=== PATIENT | male | born 1980 | race Caucasian/White ===

== ENCOUNTER 2023-02-24 09:55 | Inpatient (IN) | payer MEDICAID ==
[~2023-02-24] VITALS: Ht 180.3 cm; Wt 59.0 kg
[2023-02-24] MEDS ORDERED: SODIUM CHLORIDE 0.9% 1,000 ML IV ONE (10:30)
[2023-02-24] MEDS ORDERED: CEFTRIAXONE 1GM PREMIX 50 ML IV NR (11:00)
[2023-02-24] MEDS ORDERED: AZITHROMYCIN 500MG/250ML 250 ML IV NR (11:00)
[2023-02-24 11:01] LABS: HEMATOCRIT. 40.3 % (42.0-52.0); MEAN CORPUSCULAR HEMOGLOBIN 32.6 pg (28.0-32.0); MEAN CORPUSCULAR HGB CONC 34.9 g/dL (31.0-37.0); MEAN CORPUSCULAR VOLUME 93.4 fL (80.0-94.0); PLATELET 347 x1000/uL (130-400); RED BLOOD CELL COUNT 4.31 mill/uL (4.7-6.1); RED CELL DISTRIBUTION WIDTH 13.4 % (11.6-14.6); WHITE BLOOD COUNT 20.3 x1000/uL (4.5-11.0)
[2023-02-24 11:03] LABS: CLARITY URINE CLEAR (CLEAR); COLOR URINE YELLOW (YELLOW); GLUCOSE URINE NEGATIVE (NEGATIVE); KETONES URINE NEGATIVE (NEGATIVE); LEUKOCYTE ESTERASE URINE NEGATIVE (NEGATIVE); NITRITE URINE NEGATIVE (NEGATIVE); OCCULT BLOOD URINE 2+ (NEGATIVE); PROTEIN URINE 2+ (NEGATIVE); SPECIFIC GRAVITY URINE 1.015 (1.005-1.030)
[2023-02-24 11:03] LABS: DIFFERENTIAL COMMENT 1
[2023-02-24 11:12] LABS: ALANINE AMINOTRANSFERASE 111 IU/L (10-49); ASPARTATE AMINOTRANSFERASE 176 IU/L (<34); BILIRUBIN TOTAL 0.5 mg/dL (0.1-1.0); CALCIUM 9.1 mg/dL (8.7-10.4); CARBON DIOXIDE 29 mEq/L (21-32); CHLORIDE 83 mEq/L (98-107); CREATININE 0.7 mg/dL (0.6-1.3); GLUCOSE 71 mg/dL (70-105); POTASSIUM 3.5 mEq/L (3.5-5.1); PROTEIN TOTAL 7.6 g/dL (6.0-8.3); UREA NITROGEN BLOOD 16 mg/dL (9-23)
[2023-02-24 11:16] LABS: COARSE GRANULAR CASTS URINE 0-5 /lpf
[2023-02-24 11:18] LABS: SQUAMOUS EPITHELIAL CELL URINE FEW /lpf (RARE/1+)
[2023-02-24 11:19] LABS: BACTERIA URINE TRACE; RBC URINE 0-2 /hpf (0-2); WBC URINE 0-2 /hpf (0-2)
[2023-02-24 11:31] LABS: TROPONIN I HIGH SENSITIVITY 431 ng/L (3.0-53)
[2023-02-24 11:32] LABS: SODIUM 119 mEq/L (136-145)
[2023-02-24 11:46] LABS: PLATELET ESTIMATE NORMAL
[2023-02-24] MEDS ORDERED: POTASSIUM CHLORIDE 20MEQ TABLET SR PO NR (13:00)
[2023-02-24] MEDS ORDERED: ASPIRIN 81MG TABLET PO NR (13:15)
[2023-02-24] MEDS ORDERED: MAGNESIUM/ALUMINUM HYDROXIDE/SIMETHICONE 30ML UDC PO PRN (14:30)
[2023-02-24] MEDS ORDERED: IPRATROPIUM/ALBUTEROL 0.5-3(2.5)MG/3ML NEB HHN PRN (14:30)
[2023-02-24] MEDS ORDERED: ACETAMINOPHEN 325MG TABLET PO PRN (14:30)
[2023-02-24] MEDS ORDERED: ONDANSETRON HCL 4MG/2ML INJ IV PRN (14:30)
[2023-02-24] MEDS ORDERED: CLONIDINE 0.1MG TABLET PO PRN (14:30)
[2023-02-24] MEDS ORDERED: DIPHENHYDRAMINE 50MG/ML VIAL IV PRN (14:30)
[2023-02-24] MEDS ORDERED: CEFTRIAXONE 1GM PREMIX 50 ML IV SCH (14:30)
[2023-02-24] MEDS: SODIUM CHLORIDE 0.9% 1,000 ML IV SCH (14:59)
[2023-02-24 15:48] LABS: CHOLESTEROL 95 mg/dL (<200); HDL CHOLESTEROL < 20 mg/dL (>55); LDL CHOLESTEROL 41 mg/dL (5-100); T4 FREE 1.14 ng/dL (0.89-1.76); THYROID STIMULATING HORMONE 0.38 uIU/mL (0.55-4.78); TRIGLYCERIDE 160 mg/dL (0-150)
[2023-02-24 15:58] LABS: ETHANOL BLOOD < 10 mg/dL (<10)
[2023-02-24] MEDS ORDERED: VANCOMYCIN 1500MG in DEXTROSE 5% WATER 250ML IV NR (16:00)
[2023-02-24] MEDS: PANTOPRAZOLE SODIUM 40 MG/VIAL IV SCH (16:28)
[2023-02-24] MEDS: ACETAMINOPHEN 325MG TABLET PO PRN (21:30)
[2023-02-24 23:54] LABS: CREATINE KINASE 259 IU/L (46-171)
[2023-02-25] VITALS (7 sets, daily range): BP systolic 92–140; BP diastolic 57–90; PULSE 88–132; RESP 18–20; TEMP 97.9–104.2; O2SAT 91
[2023-02-25] MEDS ORDERED: VANCOMYCIN 1G PREMIX 200 ML IV SCH
[2023-02-25] MEDS: SODIUM CHLORIDE 0.9% 1,000 ML IV SCH ×2 (03:37→16:35)
[2023-02-25 07:02] LABS: HEMATOCRIT. 36.7 % (42.0-52.0); HEMOGLOBIN. 12.5 g/dL (14.0-18.0); MEAN CORPUSCULAR HEMOGLOBIN 32.7 pg (28.0-32.0); MEAN CORPUSCULAR HGB CONC 34.2 g/dL (31.0-37.0); MEAN CORPUSCULAR VOLUME 95.5 fL (80.0-94.0); MEAN PLATELET VOLUME 9.8 fl (7.4-10.4); PLATELET 328 x1000/uL (130-400); RED BLOOD CELL COUNT 3.84 mill/uL (4.7-6.1); RED CELL DISTRIBUTION WIDTH 13.4 % (11.6-14.6); WHITE BLOOD COUNT 13.6 x1000/uL (4.5-11.0)
[2023-02-25 07:04] LABS: CALCIUM 8.5 mg/dL (8.7-10.4); CARBON DIOXIDE 23 mEq/L (21-32); CHLORIDE 92 mEq/L (98-107); CREATINE KINASE 201 IU/L (46-171); CREATININE 0.6 mg/dL (0.6-1.3); GLUCOSE 101 mg/dL (70-105); POTASSIUM 3.8 mEq/L (3.5-5.1); SODIUM 124 mEq/L (136-145); UREA NITROGEN BLOOD 12 mg/dL (9-23)
[2023-02-25 07:38] LABS: TROPONIN I HIGH SENSITIVITY 238 ng/L (3.0-53)
[2023-02-25 07:43] LABS: DIFFERENTIAL COMMENT 1
[2023-02-25] MEDS: PANTOPRAZOLE SODIUM 40 MG/VIAL IV SCH (08:59)
[2023-02-25] MEDS: ASPIRIN 81MG EC TABLET PO SCH (08:59)
[2023-02-25] MEDS: ACETAMINOPHEN 325MG TABLET PO PRN ×3 (09:12→20:33)
[2023-02-25] MEDS: GUAIFENESIN/DM 600MG/30MG ER TAB 12HR PO SCH ×2 (10:48→20:34)
[2023-02-25] MEDS: VANCOMYCIN 750MG PREMIX 150 ML IV SCH ×2 (10:48→16:47)
[2023-02-25] MEDS ORDERED: AZITHROMYCIN 500 MG in DEXT 5% WATER 250 ML IV SCH (12:00)
[2023-02-25] MEDS ORDERED: DEXTROSE 50% WATER 50ML SYRINGE IV PRN (12:30)
[2023-02-25] MEDS: BLOOD SUGAR DIAGNOSTIC STRIP TEST SCH ×3 (12:40→20:59)
[2023-02-25] MEDS: CEFTRIAXONE 1,000 MG in DEXTROSE 5% WATER 50 ML IV SCH (12:58)
[2023-02-25] MEDS: INSULIN LISPRO 100 UNITS/ML SUBCUT SCH ×3 (13:10→20:59)
[2023-02-25] MEDS: IPRATROPIUM/ALBUTEROL 0.5-3(2.5)MG/3ML NEB HHN SCH (15:47)
[2023-02-25 16:18] LABS: PLATELET ESTIMATE NORMAL
[2023-02-25 16:43] LABS: *AMPHETAMINES SCREEN URINE NEGATIVE (NEGATIVE); *BARBITURATES SCREEN URINE NEGATIVE (NEGATIVE); *BENZODIAZEPINES SCREEN URINE NEGATIVE (NEGATIVE); *COCAINE SCREEN URINE NEGATIVE (NEGATIVE); CANNABINOID URINE SCREEN NEGATIVE (NEGATIVE); ECSTASY MDMA SCREEN URINE NEGATIVE (NEGATIVE); METHADONE URINE SCREEN Neg (NEGATIVE); OPIATES URINE SCREEN NEGATIVE (NEGATIVE); PHENCYCLIDINE URINE SCREEN NEGATIVE (NEGATIVE)
[2023-02-25] MEDS: ATORVASTATIN CALCIUM 40MG TABLET PO SCH (20:17)
[2023-02-25] MEDS: ZOLPIDEM TARTRATE 5MG TABLET PO PRN (20:17)
[2023-02-25] MEDS ORDERED: INFLUENZA VACCINE 05/PF 0.5 ML SYRINGE IM ONE (21:00)
[2023-02-25] MEDS ORDERED: PNEUMOCOCCAL 23-VAL P-SAC VAC 0.5 ML IM ONE (21:00)
[2023-02-25] MEDS: BUDESONIDE 0.5MG/2ML NEB HHN SCH (21:24)
[2023-02-26] VITALS (10 sets, daily range): BP systolic 118–129; BP diastolic 66–80; PULSE 80–103; RESP 18–20; TEMP 97.5–99.5; O2SAT 91–94
[2023-02-26] MEDS: VANCOMYCIN 750MG PREMIX 150 ML IV SCH (01:11)
[2023-02-26] MEDS: IPRATROPIUM/ALBUTEROL 0.5-3(2.5)MG/3ML NEB HHN SCH ×4 (01:32→21:05)
[2023-02-26] MEDS: BLOOD SUGAR DIAGNOSTIC STRIP TEST SCH ×4 (05:43→21:05)
[2023-02-26] MEDS: INSULIN LISPRO 100 UNITS/ML SUBCUT SCH ×4 (05:44→21:05)
[2023-02-26 07:51] LABS: CALCIUM 8.2 mg/dL (8.7-10.4); CARBON DIOXIDE 22 mEq/L (21-32); CHLORIDE 93 mEq/L (98-107); CREATININE 0.6 mg/dL (0.6-1.3); GLUCOSE 102 mg/dL (70-105); PHOSPHORUS 2.6 mg/dL (2.5-4.9); POTASSIUM 3.6 mEq/L (3.5-5.1); SODIUM 125 mEq/L (136-145); UREA NITROGEN BLOOD 11 mg/dL (9-23)
[2023-02-26] MEDS: GUAIFENESIN/DM 600MG/30MG ER TAB 12HR PO SCH ×2 (08:38→20:49)
[2023-02-26] MEDS: ASPIRIN 81MG EC TABLET PO SCH (08:38)
[2023-02-26] MEDS: FAMOTIDINE 20MG TABLET PO SCH ×2 (08:39→20:49)
[2023-02-26] MEDS: METHYLPREDNISOLONE SOD SUCC 40MG/ML (ACT-O-VIAL) IV SCH ×2 (08:44→16:37)
[2023-02-26] MEDS: SODIUM CHLORIDE 0.9% 1,000 ML IV SCH ×2 (08:44→16:39)
[2023-02-26] MEDS ORDERED: SODIUM CHLORIDE 3% FOR INH 4ML UD NEB INH SCH (09:00)
[2023-02-26 09:04] LABS: HEMATOCRIT. 34.7 % (42.0-52.0); HEMOGLOBIN. 12.1 g/dL (14.0-18.0); MEAN CORPUSCULAR HEMOGLOBIN 32.6 pg (28.0-32.0); MEAN CORPUSCULAR HGB CONC 34.8 g/dL (31.0-37.0); MEAN CORPUSCULAR VOLUME 93.6 fL (80.0-94.0); MEAN PLATELET VOLUME 9.4 fl (7.4-10.4); PLATELET 404 x1000/uL (130-400); RED CELL DISTRIBUTION WIDTH 13.8 % (11.6-14.6); WHITE BLOOD COUNT 11.2 x1000/uL (4.5-11.0)
[2023-02-26 09:08] LABS: DIFFERENTIAL COMMENT 1
[2023-02-26 09:58] LABS: ERYTHROCYTE SEDIMENTATION RATE 91 mm/hr (0-15)
[2023-02-26] MEDS: BUDESONIDE 0.5MG/2ML NEB HHN SCH ×2 (10:28→21:05)
[2023-02-26] MEDS ORDERED: VANCOMYCIN 1G PREMIX 200 ML IV SCH (11:00)
[2023-02-26 11:19] LABS: BG BASE EXCESS 2.3 mmol/L (-2.0-2.0); BG CARBOXYHEMOGLOBIN 0.2 % (0.5-1.5); BG DEOXYHEMOGLOBIN 6.3 % (0.0-5.0); BG FRACTION INSPIRED OXYGEN 21; BG HCO3 ACT 23.9 mmol/L (22.0-26.0); BG METHEMOGLOBIN 0.3 % (0.0-1.5); BG OXYGEN SATURATION 93.7 % (92.0-98.5); BG OXYHEMOGLOBIN 93.2 % (94.0-97.0); BG PCO2 28.6 mmHg (35.0-45.0); BG PO2 63.6 mmHg (75.0-100.0); BG SAMPLE SITE RIGHT RADIAL; BG TOTAL HEMOGLOBIN 13.3 g/dL (12.0-18.0); BG VENT MODE ROOM AIR
[2023-02-26] MEDS: AZITHROMYCIN 500 MG in DEXT 5% WATER 250 ML IV SCH (12:55)
[2023-02-26] MEDS: CEFTRIAXONE 1,000 MG in DEXTROSE 5% WATER 50 ML IV SCH (12:56)
[2023-02-26 16:11] LABS: PLATELET ESTIMATE SLIGHTLY INCREASED
[2023-02-26] MEDS: ZOLPIDEM TARTRATE 5MG TABLET PO PRN (20:49)
[2023-02-26] MEDS: ATORVASTATIN CALCIUM 40MG TABLET PO SCH (20:49)
[2023-02-27] VITALS (9 sets, daily range): BP systolic 117–134; BP diastolic 77–88; PULSE 70–103; RESP 19–20; TEMP 97.3–98.1; O2SAT 88–94
[2023-02-27] MEDS: METHYLPREDNISOLONE SOD SUCC 40MG/ML (ACT-O-VIAL) IV SCH ×4 (00:46→22:41)
[2023-02-27] MEDS: ACETYLCYSTEINE 200MG/ML 20% VIAL 4ML INH SCH ×2 (02:25→09:15)
[2023-02-27] MEDS: IPRATROPIUM/ALBUTEROL 0.5-3(2.5)MG/3ML NEB HHN SCH ×4 (02:25→21:05)
[2023-02-27] MEDS: SODIUM CHLORIDE 0.9% 1,000 ML IV SCH ×2 (02:42→17:43)
[2023-02-27] MEDS: BLOOD SUGAR DIAGNOSTIC STRIP TEST SCH ×4 (05:33→21:00)
[2023-02-27] MEDS: INSULIN LISPRO 100 UNITS/ML SUBCUT SCH ×4 (05:49→21:00)
[2023-02-27 06:26] LABS: BASOPHILS % 0.1 % (0.0-2.0); DIFFERENTIAL COMMENT 0; HEMATOCRIT. 37.1 % (42.0-52.0); HEMOGLOBIN. 12.8 g/dL (14.0-18.0); LYMPHOCYTES % 7.6 % (20.0-50.0); MEAN CORPUSCULAR HEMOGLOBIN 32.4 pg (28.0-32.0); MEAN CORPUSCULAR HGB CONC 34.6 g/dL (31.0-37.0); MEAN CORPUSCULAR VOLUME 93.7 fL (80.0-94.0); MEAN PLATELET VOLUME 8.9 fl (7.4-10.4); MONOCYTES % 6.6 % (2.0-8.0); NEUTROPHILS % 85.7 % (40.0-76.0); PLATELET 475 x1000/uL (130-400); RED BLOOD CELL COUNT 3.96 mill/uL (4.7-6.1); WHITE BLOOD COUNT 7.6 x1000/uL (4.5-11.0)
[2023-02-27 06:31] LABS: CALCIUM 8.7 mg/dL (8.7-10.4); CARBON DIOXIDE 19 mEq/L (21-32); CHLORIDE 100 mEq/L (98-107); CREATININE 0.4 mg/dL (0.6-1.3); GLUCOSE 174 mg/dL (70-105); POTASSIUM 3.5 mEq/L (3.5-5.1); SODIUM 134 mEq/L (136-145); UREA NITROGEN BLOOD 13 mg/dL (9-23)
[2023-02-27] MEDS: GUAIFENESIN/DM 600MG/30MG ER TAB 12HR PO SCH ×2 (08:25→21:49)
[2023-02-27] MEDS: ASPIRIN 81MG EC TABLET PO SCH (08:25)
[2023-02-27] MEDS: FAMOTIDINE 20MG TABLET PO SCH ×2 (08:25→21:49)
[2023-02-27] MEDS: BUDESONIDE 0.5MG/2ML NEB HHN SCH ×2 (09:15→21:05)
[2023-02-27] MEDS: CEFTRIAXONE 1,000 MG in DEXTROSE 5% WATER 50 ML IV SCH (12:44)
[2023-02-27] MEDS: AZITHROMYCIN 500 MG in DEXT 5% WATER 250 ML IV SCH (12:44)
[2023-02-27] MEDS ORDERED: IOHEXOL-350 100 ML BOTTLE ONE (13:59)
[2023-02-27] MEDS: ATORVASTATIN CALCIUM 40MG TABLET PO SCH (21:49)
[2023-02-28] VITALS (9 sets, daily range): BP systolic 120–144; BP diastolic 81–88; PULSE 79–94; RESP 18–20; TEMP 97.5–98.8; O2SAT 93–98
[2023-02-28] MEDS: IPRATROPIUM/ALBUTEROL 0.5-3(2.5)MG/3ML NEB HHN SCH ×3 (00:43→15:53)
[2023-02-28] MEDS: ACETYLCYSTEINE 200MG/ML 20% VIAL 4ML INH SCH ×2 (00:43→08:57)
[2023-02-28 05:50] LABS: HEMATOCRIT 35.2 % (42.0-52.0); HEMOGLOBIN 11.5 g/dL (14.0-18.0); MEAN CORPUSCULAR HEMOGLOBIN 31.3 pg (28.0-32.0); MEAN CORPUSCULAR HGB CONC 32.7 g/dL (31.0-37.0); MEAN CORPUSCULAR VOLUME 95.7 fL (80.0-94.0); PLATELET 613 x1000/uL (130-400); RED BLOOD CELL COUNT 3.68 mill/uL (4.7-6.1); WHITE BLOOD COUNT 11.7 x1000/uL (4.5-11.0)
[2023-02-28 06:16] LABS: CALCIUM 8.5 mg/dL (8.7-10.4); CARBON DIOXIDE 19 mEq/L (21-32); CHLORIDE 102 mEq/L (98-107); CREATININE 0.5 mg/dL (0.6-1.3); GLUCOSE 151 mg/dL (70-105); SODIUM 136 mEq/L (136-145); UREA NITROGEN BLOOD 13 mg/dL (9-23)
[2023-02-28] MEDS: METHYLPREDNISOLONE SOD SUCC 40MG/ML (ACT-O-VIAL) IV SCH (06:20)
[2023-02-28] MEDS: BLOOD SUGAR DIAGNOSTIC STRIP TEST SCH ×2 (06:20→12:24)
[2023-02-28] MEDS: SODIUM CHLORIDE 0.9% 1,000 ML IV SCH (06:34)
[2023-02-28] MEDS: INSULIN LISPRO 100 UNITS/ML SUBCUT SCH ×2 (08:10→12:25)
[2023-02-28] MEDS: BUDESONIDE 0.5MG/2ML NEB HHN SCH (08:56)
[2023-02-28] MEDS: FAMOTIDINE 20MG TABLET PO SCH (08:57)
[2023-02-28] MEDS: GUAIFENESIN/DM 600MG/30MG ER TAB 12HR PO SCH (08:57)
[2023-02-28] MEDS: ASPIRIN 81MG EC TABLET PO SCH (08:58)
[2023-02-28] MEDS ORDERED: ENOXAPARIN 40MG/0.4ML SYR SUBCUT SCH (09:00)
[2023-02-28] MEDS ORDERED: ALBU6.7H15 INH (11:19)
[2023-02-28] MEDS ORDERED: LIP40 MT (11:19)
[2023-02-28] MEDS ORDERED: AZIT500T8 MT ×2 (11:19)
[2023-02-28] MEDS ORDERED: P20 MT (11:19)
[2023-02-28] MEDS: AZITHROMYCIN 500 MG in DEXT 5% WATER 250 ML IV SCH (12:23)
[2023-02-28] MEDS: CEFTRIAXONE 1,000 MG in DEXTROSE 5% WATER 50 ML IV SCH (12:24)
[2023-02-28] MEDS ORDERED: LEVO750T68 MT (15:37)
[2023-02-28] MEDS ORDERED: METHYLPREDNISOLONE SOD SUCC 40MG/ML (ACT-O-VIAL) IV SCH (17:00)
== END 2023-02-28 17:09 | disposition home or self-care (01) | DRG 720 ==
LOC: ER 09:55 → 7WST 11:58 → EDBEDREQSVC 12:02 → EDBEDREQ 12:02
PROVIDERS: ADMIT Internal Medicine; ATTEND Internal Medicine
DX: A41.9 Sepsis, unspecified organism (principal); J96.01 Acute respiratory failure with hypoxia; I21.A1 Myocardial infarction type 2; E87.1 Hypo-osmolality and hyponatremia; J18.9 Pneumonia, unspecified organism; E87.6 Hypokalemia; E11.9 Type 2 diabetes mellitus without complications; E87.8 Other disorders of electrolyte and fluid balance, not elsewhere classified; R74.01 Elevation of levels of liver transaminase levels; F17.210 Nicotine dependence, cigarettes, uncomplicated; Z79.899 Other long term (current) drug therapy; Z79.82 Long term (current) use of aspirin; Z28.310 Unvaccinated for COVID-19; Z79.4 Long term (current) use of insulin
CPT/HCPCS: 36415; 36600; 71045; 71275; 80048; 80053; 80061; 80202; 80305; 80320; 81003; 82375; 82550; 82805; 82962; 83036; 83605; 83735; 83880; 84100; 84145; 84439; 84443; 84484; 85025; 85027; 85651; 86713; 87070; 87426; 87449; 87804; 90686; 90732; 93005; 93306; 94640; 99291; C1893; C9113; J0456; J0696; J1200; J1650; J1815; J2920; J3370; J7030; J7060; J7608; J7626; Q9967; G0480